=== PATIENT | male | born 2005 | race Two or more races ===

== ENCOUNTER 2025-01-15 21:12 | Emergency (ER) | payer SELFPAY ==
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
[2025-01-15 21:20] VITALS: BMI 20.1
[2025-01-15 21:23] VITALS: BP 130/90; PULSE 117; RESP 16; TEMP 37.9; O2SAT 97
[2025-01-15] MEDS: ACETAMINOPHEN 325 MG TABLET 650 MG PO (21:48)
== END 2025-01-15 22:00 ==
LOC: SERX 22:10
PROVIDERS: Emergency Provider Emergency Medicine
DX: Z02.89 Encounter for other administrative examinations (principal); Z65.3 Problems related to other legal circumstances; R50.9 Fever, unspecified; R00.0 Tachycardia, unspecified; M25.552 Pain in left hip; R10.9 Unspecified abdominal pain; V89.2XXA Person injured in unspecified motor-vehicle accident, traffic, initial encounter; Y92.410 Unspecified street and highway as the place of occurrence of the external cause
CPT/HCPCS: 99282; A9270